=== PATIENT | male | born 1955 | race Caucasian/White ===

== ENCOUNTER → 2024-05-08 18:04 | Outpatient (REF) | payer BC, SELFPAY ==
[2024-05-08 20:02] LABS: Hematocrit 48.5 % (39.0-52.0); Hemoglobin 16.1 g/dL (13.0-18.0); Mean Corp Hgb Conc. 33.2 g/dL (33.0-37.0); Mean Corpuscular Volume 108.5 fL (80.0-94.0); Platelet Count 313 10^3/uL (130-400); Red Blood Cell Count 4.47 10^6/uL (4.70-6.10); Red Cell Dist. Width 12.7 % (11.5-14.5); White Blood Cell Count 5.5 10^3/uL (4.8-10.8)
[2024-05-08 20:03] LABS: % Basophils 0.9 % (0-2); % Eosinophils 1.8 % (0-6); % Immature Granulocytes 0.4 % (0-0.5); % Lymphocytes 35.1 % (20.5-51.1); % Monocytes 10.5 % (1.7-9.3); % Neutrophils 51.3 % (42.2-75.2); Absolute Eosinophils 0.1 10^3/uL (0-0.7); Absolute Lymphocytes 1.9 10^3/uL (1.2-3.4); Absolute Monocytes 0.6 10^3/uL (0.1-0.6); Absolute Neutrophils 2.8 10^3/uL (1.4-6.5); Mean Platelet Volume 9.5 fL (7.4-10.4)
[2024-05-08 20:04] LABS: Absolute Basophils 0.1 10^3/uL (0-0.2); Nucleated Red Blood Cells % 0 % (-)
[2024-05-08 20:06] LABS: ALT (SGPT) 28 U/L (0-50); AST (SGOT) 31 U/L (17-59); Albumin 4.6 g/dl (3.5-5.0); Alkaline Phosphatase 104 U/L (38-126); Blood Urea Nitrogen 15 mg/dl (9-20); Calcium 10.2 mg/dl (8.4-10.2); Carbon Dioxide 26 mmol/L (22-30); Chloride 102 mmol/L (98-107); Glucose 101 mg/dl (70-99); HDL Cholesterol 37 mg/dl; LDL Cholesterol, Calculated 67 mg/dl; Potassium 4.9 mmol/L (3.5-5.1); Sodium 140 mmol/L (135-145); Total Bilirubin 1.1 mg/dl (0.2-1.3); Total Cholesterol 146 mg/dl (50-199); Total Protein 7.1 g/dl (6.3-8.2); Triglyceride 214 mg/dl (10-149); Very Low Density Lipoprotein 42 mg/dl (0-30); eGFR > 60.00
[2024-05-08 20:21] LABS: Vitamin D, 25-OH*** 27.2 ng/mL (30-80)
[2024-05-08 20:35] LABS: PSA, Total - Screen 1.78 ng/ml (0.0-4.0)
[2024-05-08 20:54] LABS: Vitamin B12 322 pg/ml (239-931)
== END ==
LOC: CLAB 18:04
PROVIDERS: ATTENDING PHYSICIAN Internal Medicine
DX: E78.00 Pure hypercholesterolemia, unspecified (principal); N40.1 Benign prostatic hyperplasia with lower urinary tract symptoms; D75.89 Other specified diseases of blood and blood-forming organs; E55.9 Vitamin D deficiency, unspecified
CPT/HCPCS: 36415; 80053; 80061; 82306; 82607; 85025; G0103

== ENCOUNTER 2025-03-26 06:28 | Day surgery (SDC) | payer BC, SELFPAY | END 2025-03-26 10:36 | disposition home or self-care (01) | LOC: GI 06:28 | PROVIDERS: ATTENDING PHYSICIAN Surgery | DX: Z12.11 Encounter for screening for malignant neoplasm of colon (principal); K57.30 Diverticulosis of large intestine without perforation or abscess without bleeding; D12.3 Benign neoplasm of transverse colon; Z86.0100 Personal history of colon polyps, unspecified | CPT/HCPCS: 45380; 88305 ==

== ENCOUNTER → 2025-05-28 08:30 | Outpatient (REF) | payer BC, SELFPAY ==
[2025-05-28 18:26] LABS: Hematocrit 51.5 % (39.0-52.0); Hemoglobin 17.0 g/dL (13.0-18.0)
[2025-05-28 18:27] LABS: Mean Corp Hgb Conc. 33.0 g/dL (33.0-37.0); Mean Corpuscular Volume 109.8 fL (80.0-94.0); Nucleated Red Blood Cells % 0 % (-); Platelet Count 302 10^3/uL (130-400); Red Cell Dist. Width 12.9 % (11.5-14.5)
[2025-05-28 18:43] LABS: ALT (SGPT) 21 U/L (0-50); AST (SGOT) 23 U/L (17-59); Albumin 4.6 g/dl (3.5-5.0); Alkaline Phosphatase 97 U/L (38-126); Calcium 10.1 mg/dl (8.4-10.2); Carbon Dioxide 27 mmol/L (22-30); Chloride 104 mmol/L (98-107); Glucose 95 mg/dl (70-99); HDL Cholesterol 43 mg/dl; LDL Cholesterol, Calculated 75 mg/dl; Potassium 4.7 mmol/L (3.5-5.1); Sodium 139 mmol/L (135-145); Total Protein 7.5 g/dl (6.3-8.2); Very Low Density Lipoprotein 31 mg/dl (0-30); eGFR > 60.00
[2025-05-28 18:46] LABS: Urine Character Clear (Clear)
[2025-05-28 18:48] LABS: Blood Urea Nitrogen 15 mg/dl (9-20)
[2025-05-28 18:54] LABS: Urine Squamous Cell 0-2 /LPF (Few); Urine White Cell 0-2 /HPF (0-5)
[2025-05-28 18:55] LABS: Urine Red Blood Cell 0-2 /HPF (0-2)
[2025-05-28 19:35] LABS: Vitamin B12 356 pg/ml (239-931)
== END ==
LOC: CLAB 08:30
PROVIDERS: ATTENDING PHYSICIAN Internal Medicine
DX: N40.1 Benign prostatic hyperplasia with lower urinary tract symptoms (principal); E78.00 Pure hypercholesterolemia, unspecified; D75.89 Other specified diseases of blood and blood-forming organs; N41.9 Inflammatory disease of prostate, unspecified
CPT/HCPCS: 36415; 80053; 80061; 81003; 81015; 82607; 84153; 84154; 85025; 87086